=== PATIENT | male | born 1945 | race Asian ===

== ENCOUNTER 2016-09-28 18:10 | Emergency (ER) | payer MEDICARE, BC ==
[~2016-09-28] VITALS: Ht 167.6 cm; Wt 56.6 kg
[2016-09-28] MEDS ORDERED: LIDOCAINE 1%, 20ML ONE (18:34)
[2016-09-28 19:39] VITALS: BP 173/93
== END 2016-09-28 19:42 | disposition home or self-care (01) ==
LOC: ED 19:36
DX: S61.217A Laceration without foreign body of left little finger without damage to nail, initial encounter (principal); I10 Essential (primary) hypertension; W26.8XXA Contact with other sharp object(s), not elsewhere classified, initial encounter; Y93.01 Activity, walking, marching and hiking; Y92.89 Other specified places as the place of occurrence of the external cause; Y99.8 Other external cause status
CPT/HCPCS: 12001